=== PATIENT | male | born 2000 | race Two or more races ===

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

== ENCOUNTER 2019-10-18 20:09 | Emergency (ER) | payer MEDICAID, OTHER ==
[~2019-10-18] VITALS: Ht 172.7 cm; Wt 64.0 kg
[~2019-10-18 20:09] MED LIST: DEPAKOTE; DIVA125T2 PO; DIVA500T2 PO
[2019-10-18] MEDS ORDERED: KEPPRA (20:26)
--- NOTE | 2019-10-18 20:26 | NUR ---
BIB [facility] FROM WORK. PT HAD WITNESSED SEIZURE AND HELPED TO GROUND. DID NOT HIT HIS HEAD. [employer] [facility]: PIV 20G RFA, 2 VERSED. PT CONNECTED TO MONITORING. SEIZURE PRECAUTIONS IN PLACE. EKG COMPLETE. LAB AT BEDSIDE. PT A&O4. PT IS SINGING TO HIMSELF. PT IS COMPLIANT WITH CARE.
[2019-10-18] MEDS ORDERED: SODIUM CHLORIDE FLUSH 10ML SYR IVF ONE (20:30)
[2019-10-18] MEDS ORDERED: PLEASE ENTER HEIGHT AND WEIGHT MC SCH (20:30)
[2019-10-18] MEDS ORDERED: SODIUM CHLORIDE 0.9% 1,000ML IVBOLUS ONE (20:30)
[2019-10-18 20:40] LABS: BASOPHILS # (AUTO) 0.03 x10^3/uL (0-0.3); BASOPHILS % (AUTO) 1 % (0-1); EOSINOPHILS # (AUTO) 0.03 x10^3/uL (0-0.8); EOSINOPHILS % (AUTO) 1 % (1-7); LYMPHOCYTES # (AUTO) 1.61 x10^3/uL (1-6.1); LYMPHOCYTES % (AUTO) 28 % (22-44); MD NO; MEAN CORPUSCULAR HEMOGLOBIN 31.8 pg (27.5-34.5); MEAN CORPUSCULAR VOLUME 93.6 fL (81-97); MEAN PLATELET VOLUME 8.8 fL (7.4-10.4); MONOCYTES # (AUTO) 0.45 x10^3/uL (0-1.4); MONOCYTES % (AUTO) 8 % (2-9); NEUTROPHILS # (AUTO) 3.59 x10^3/uL (1.8-8.0); NEUTROPHILS % (AUTO) 63 % (42-75); PLATELET COUNT 253 x10^3/uL (130-400); RED BLOOD COUNT 4.78 x10^6/uL (4.38-5.82); RED CELL DISTRIBUTION WIDTH 13.6 % (9.4-14.8)
[2019-10-18 20:49] LABS: ALANINE AMINOTRANSFERASE 23 U/L (12-78); ALBUMIN 3.8 g/dL (3.4-5.0); ANION GAP 7 mmol/L (5-15); CALCIUM 8.3 mg/dL (8.5-10.1); CHLORIDE 106 mmol/L (98-107); CREATININE 0.97 mg/dL (0.7-1.3)
[2019-10-18 20:51] LABS: ALKALINE PHOSPHATASE 102 U/L (45-117); BILIRUBIN,TOTAL 0.2 mg/dL (0.2-1.0); TOTAL PROTEIN 7.6 g/dL (6.4-8.2)
--- NOTE | 2019-10-18 21:10 | NUR ---
ALL RESULTS ARE BACK AT THIS TIME. CHART UP FOR RECHECK. DAD AT BEDSIDE.
[2019-10-18 21:48] VITALS: BP 119/60
--- NOTE | 2019-10-18 21:49 | NUR ---
PT RESTING COMFORTABLY ON GURNEY. RESP EVEN AND UNLABORED. DAD AT BEDSIDE. MD AT BEDSIDE TO UPDATE PT ON POC.
--- NOTE | 2019-10-18 22:04 | NUR ---
ALL RESULTS ARE BACK AT THIS TIME. CHART UP FOR RECHECK.
[2019-10-18] MEDS ORDERED: VALPROIC ACID 250 MG CAPSULE PO ONE (22:30)
== END 2019-10-18 22:42 | disposition home or self-care (01) ==
LOC: ED 21:34
DX: G40.409 Other generalized epilepsy and epileptic syndromes, not intractable, without status epilepticus (principal); R00.0 Tachycardia, unspecified
CPT/HCPCS: 36415; 80053; 80164; 80307; 85025; 93005; 99284; 99406; J7030

== ENCOUNTER 2020-04-16 19:48 | Emergency (ER) | payer MEDICAID ==
[~2020-04-16] VITALS: Ht 170.2 cm; Wt 66.0 kg
[~2020-04-16 19:48] MED LIST changes: +KEPPRA
--- NOTE | 2020-04-16 20:11 | NUR ---
PT CONNECTED TO MONITORING. SEIZURE PRECAUTIONS IN PLACE. PT FATHER AT BEDSIDE. PT STATES HE FEELS BACK TO NORMAL.
[2020-04-16 20:58] LABS: ALANINE AMINOTRANSFERASE 24 U/L (12-78); ALBUMIN 3.8 g/dL (3.4-5.0); ANION GAP 6 mmol/L (5-15); CALCIUM 8.5 mg/dL (8.5-10.1); CHLORIDE 107 mmol/L (98-107); CREATININE 0.78 mg/dL (0.7-1.3)
[2020-04-16 21:00] LABS: ALKALINE PHOSPHATASE 111 U/L (45-117); BASOPHILS % (AUTO) 1 % (0-1); BILIRUBIN,TOTAL 0.3 mg/dL (0.2-1.0); EOSINOPHILS % (AUTO) 1 % (1-7); LYMPHOCYTES % (AUTO) 32 % (22-44); MEAN CORPUSCULAR HEMOGLOBIN 31.5 pg (27.5-34.5); MEAN CORPUSCULAR HGB CONC 33.7 g/dL (33.2-36.2); MEAN PLATELET VOLUME 9.2 fL (7.4-10.4); MONOCYTES % (AUTO) 12 % (2-9); NEUTROPHILS % (AUTO) 54 % (42-75); PLATELET COUNT 209 x10^3/uL (130-400); RED BLOOD COUNT 4.88 x10^6/uL (4.38-5.82); RED CELL DISTRIBUTION WIDTH 12.8 % (9.4-14.8); TOTAL PROTEIN 7.7 g/dL (6.4-8.2)
[2020-04-16 21:04] LABS: MD NO
--- NOTE | 2020-04-16 21:05 | NUR ---
PT PROVIDED URINE SAMPLE. UA COLLECTED AND SENT TO LAB.
[2020-04-16 21:16] LABS: MICROSCOPIC INDICATED
--- NOTE | 2020-04-16 21:40 | NUR ---
RECEIVED N/O FOR [facility].
[2020-04-16] MEDS ORDERED: ACETAMINOPHEN 325 MG TABLET ONE (21:57)
[2020-04-16] MEDS ORDERED: KETOROLAC 30 MG/1 ML ONE (21:57)
[2020-04-16] MEDS ORDERED: ACETAMINOPHEN 325 MG TABLET PO ONE (22:00)
[2020-04-16] MEDS ORDERED: KETOROLAC 30 MG/1 ML IM ONE (22:00)
[2020-04-16 22:04] VITALS: BP 128/67
[2020-04-16] MEDS ORDERED: DIVALPROEX 500 MG TABLET.DR ONE (22:16)
--- NOTE | 2020-04-16 22:19 | NUR ---
[employer]PERATOR PER MAR.
[2020-04-16] MEDS ORDERED: DIVALPROEX 500 MG TABLET.DR PO ONE (22:30)
== END 2020-04-16 22:50 | disposition home or self-care (01) ==
LOC: ED 21:27
DX: G40.409 Other generalized epilepsy and epileptic syndromes, not intractable, without status epilepticus (principal); R51.9 Headache, unspecified; R79.1 Abnormal coagulation profile; R94.31 Abnormal electrocardiogram [ECG] [EKG]
CPT/HCPCS: 36415; 80053; 80164; 81001; 85025; 93005; 96372; 99284; J1885